=== PATIENT | female | born 1930 | race Two or more races ===

== ENCOUNTER 2019-01-17 16:43 | Inpatient (IN) | payer MEDICARE ==
[~2019-01-17] VITALS: Ht 160 cm; Wt 61.7 kg
--- NOTE | 2019-01-17 16:43 | NUR ---
PT BIB [facility],C/O WEAKNESS AFTER TAKING A SHOWER, PT IS AAOX3, NOT IN RESPIRATORY DISTRESS, HOOKED TO MONITOR, KEPT RESTED AND COMFORTABLE, WILL CONTINUE TO MONITOR.
--- NOTE | 2019-01-17 17:30 | NUR ---
PT IS WHEELD TO CT SCAN [facility] [employer] [employer].
--- NOTE | 2019-01-17 17:44 | NUR ---
URINE SPECIMEN COLLECTED AND SENT TO LAB.
--- NOTE | 2019-01-17 17:47 | NUR ---
PT IS BACK FROM THE CT SCAN. AWAITING RESULT.
[2019-01-17 18:04] LABS: BASOPHILS % (AUTO) 0.4 % (0.0-2.0); HEMATOCRIT 38 % (33-45); HEMOGLOBIN 12.7 g/dL (11.5-14.8); LYMPHOCYTES # (AUTO) 0.4 /CMM (0.8-4.8); LYMPHOCYTES % (AUTO) 3.3 % (20.0-44.0); MEAN CORPUSCULAR HGB CONC 34 g/dl (31.0-36.0); MEAN CORPUSCULAR VOLUME 96 fL (82-100); MONOCYTES # (AUTO) 0.5 /CMM (0.1-1.30); MONOCYTES % (AUTO) 4.5 % (2.0-12.0); NEUTROPHILS # (AUTO) 11.1 /CMM (1.8-8.9); NEUTROPHILS % (AUTO) 91.8 % (43.0-81.0); PLATELET COUNT (AUTO) 158 /CMM (150-450); RED BLOOD CELL COUNT(AUTO) 3.93 MIL/uL (4.0-5.2); WHITE BLOOD COUNT (AUTO) 12.1 K/uL (4.3-11.0)
[2019-01-17 18:09] LABS: APPEARANCE,URINE Clear (CLEAR); BILIRUBIN,URINE Negative (NEGATIVE); BLOOD, URINE Small Ery/uL (NEGATIVE); COLOR,URINE Yellow (YELLOW); KETONES,URINE 15 (NEGATIVE); LEUKOCYTE ESTERASE ,URINE Negative (NEGATIVE); NITRITE, URINE Negative (NEGATIVE); PROTEIN,URINE 30 mg/dl (NEGATIVE); UGLUCOSE Negative (NEGATIVE); UROBILINOGEN,URINE 0.2 EU/dL (0.2)
[2019-01-17 18:14] LABS: CALCIUM, SERUM 9.1 mg/dL (8.5-10.1); CARBON DIOXIDE 26 mmol/L (21-32); CHLORIDE 99 mmol/L (98-107); CREATININE 0.8 mg/dL (0.6-1.3); GLUCOSE 112 mg/dL (74-106); POTASSIUM 3.8 mmol/L (3.5-5.1); SODIUM SERUM 134 mmol/L (136-145); UREA NITROGEN, BLOOD 18 mg/dL (7-18)
[2019-01-17 18:17] LABS: BACTERIA,URINE Rare /HPF (None Seen); SQUAMOUS EPITHELIAL CELL,UR Few /HPF (None Seen); WBC,URINE NONE SEEN /HPF (0-3)
[2019-01-17 18:20] LABS: ALANINE AMINOTRANSFERASE 55 U/L (12-78); ALBUMIN 3.7 g/dL (3.4-5.0); ALKALINE PHOSPHATASE 142 U/L (46-116); ASPARTATE AMINOTRANSFERASE 60 U/L (15-37); BILIRUBIN,DIRECT 0.2 mg/dL (0.0-0.2); BILIRUBIN,TOTAL 1.1 mg/dL (0.2-1.0); LIPASE 217 U/L (73-393); TOTAL PROTEIN, SERUM 7.3 g/dL (6.4-8.2)
--- NOTE | 2019-01-17 18:24 | NUR ---
CALLED [employer] PROGRAMMING DEVELOPMENT PROJECT MANAGER WAS PAGED.
[2019-01-17] MEDS ORDERED: ONDANSETRON HCL/PF 4 MG/2 ML VIAL ONE (18:51)
[2019-01-17] MEDS ORDERED: IV NS 0.9% 500 ML BAG IV ONE (19:00)
--- NOTE | 2019-01-17 19:01 | NUR ---
ZOFRAN 4MG IV GIVEN VERBAL ORDERED BY DR. MCCLURE.
[2019-01-17] MEDS ORDERED: IV NS 0.9% 1,000 ML IV PRN (19:48)
[2019-01-17] MEDS ORDERED: ONDANSETRON HCL/PF 4 MG/2 ML VIAL IVP PRN (20:00)
[2019-01-17] MEDS ORDERED: ACETAMINOPHEN 325 MG TABLET PO PRN (20:00)
[2019-01-17] MEDS ORDERED: MAG HYDROX/AL HYDROX/SIMETH 30 ML UDC PO PRN (20:00)
[2019-01-17] MEDS ORDERED: HYDROCODONE/APAP 5/325MG 1 EACH TABLET PO PRN (20:00)
[2019-01-17] MEDS ORDERED: MAGNESIUM HYDROXIDE 30 ML UDC PO PRN (20:00)
--- NOTE | 2019-01-17 20:40 | NUR ---
TECH AT BEDSIDE FOR US.
--- NOTE | 2019-01-17 20:49 | NUR ---
REPORT GIVEN TO MINH VALADEZ FOR NEL.
[2019-01-17] MEDS ORDERED: CEFTRIAXONE 1 G in IV D5W 50 ML IV SCH (22:00)
--- NOTE | 2019-01-17 22:25 | NUR ---
MAINFRAME SOFTWARE DEVELOPER ADMISSION NOTES, RECEIVED 88 YO FEMALE ADMITTED FROM ER DEPARTMENT, AWAKE A/OX4 ABLE TO VERBALIZED NEEDS, BREATHING EVEN AND UNLABORED, NO SOB/ACUTE DISTRESS NOTED AT THIS TIME, VS 98.8, 125, 20, 99% RA, 140/71, 02/05, STATES DO NOT WANT PAIN MEDICATION AT THSI TIME, UNDER MEDICAL SERVICES OF [employer] ANIMAL CAREGIVER, ADMITTING DX GENERALIZED WEAKNESS, DEHYDRATION, H/O AFIB, HTN, H/O OF PARTIAL HYSTERECTOMY,, SKIN CA, AFIB IN THE TELE MONITOR HR IN 90S AT THIS TIME, REFUSED BED BATH AT THIS TIME, AFEBRILE AT THIS TIME, RIGHT LOWER LEG WOUND, REDNESS AND WELLING NOTED, WARM TO TOUCH, CALL LIGHT W/I REACH, DRY AND CLEAN, DAUGHTER AT BEDSIDE, FULL CODE PER DAUGHTER AT THIS TIME, WILL CONTINUE TO MONITOR CLOSELY.
[2019-01-17] MEDS ORDERED: CEFTRIAXONE 1 G VIAL ONE (22:58)
[2019-01-18] VITALS: BP 130/64
[2019-01-18 04:00] VITALS: BP 113/60
--- NOTE | 2019-01-18 06:42 | NUR ---
STRATEGY INTERN ENDING NOTES, PATIENT SLEEPING AT THIS TIME, BREATHING EVEN AND UNLABORED, NO SOB/ACUTE DISTRESS NOTED AT THIS TIME, AFIB IN THE TELE MONITOR HR IN 90S AT THIS TIME, NO SIGNIFICANT CHANGE IN CONDITION DURING THE NIGH, LEFT AC IV ACCESS, PATENT AND INTACT, IVF INFUSING WELL AND PATIENT TOLERATED WELL, CALL LIGHT W/I REACH, DRY AND CLEAN, B S/R OF BED IN PLACED, WILL ENDORSE CONTINUITY OF CARE TO ONCOMING NURSE.
--- NOTE | 2019-01-18 07:10 | NUR ---
RN OPENING NOTE RECEIVED PATIENT IN BED AWAKE AND ALERT, A&Ox3-4. ON TELE MONITOR WITH CONTROLLED AFIB HR 90'S. HAS A LEFT AC #20 WITH NS RUNNING AT 75 ML/HR. NO COMPLAINS OF ANY PAIN, ANY DISTRESS OR ANY SOB. PATIENT ON ROOM AIR. BED LOCKED AND ON LOWEST POSITION. CALL LIGHT WITHIN REACH. WILL CONT TO MONITOR THROUGHOUT THE SHIFT.
[2019-01-18 07:28] LABS: BASOPHILS % (AUTO) 0.1 % (0.0-2.0); HEMATOCRIT 31 % (33-45); HEMOGLOBIN 10.9 g/dL (11.5-14.8); LYMPHOCYTES # (AUTO) 0.5 /CMM (0.8-4.8); LYMPHOCYTES % (AUTO) 2.9 % (20.0-44.0); MEAN CORPUSCULAR HGB CONC 35 g/dl (31.0-36.0); MEAN CORPUSCULAR VOLUME 94 fL (82-100); MONOCYTES # (AUTO) 0.7 /CMM (0.1-1.30); MONOCYTES % (AUTO) 3.8 % (2.0-12.0); NEUTROPHILS # (AUTO) 16.8 /CMM (1.8-8.9); NEUTROPHILS % (AUTO) 93.2 % (43.0-81.0); PLATELET COUNT (AUTO) 137 /CMM (150-450); RED BLOOD CELL COUNT(AUTO) 3.35 MIL/uL (4.0-5.2)
[2019-01-18 07:31] LABS: CARBON DIOXIDE 25 mmol/L (21-32); CHLORIDE 101 mmol/L (98-107); CREATININE 0.9 mg/dL (0.6-1.3); GLUCOSE 127 mg/dL (74-106); MAGNESIUM 1.7 mg/dL (1.8-2.4); POTASSIUM 3.3 mmol/L (3.5-5.1); SODIUM SERUM 137 mmol/L (136-145); UREA NITROGEN, BLOOD 16 mg/dL (7-18)
[2019-01-18 07:43] LABS: CHOLESTEROL 126 mg/dL (<200); HDL CHOLESTEROL 76 mg/dL (40-60); LDL 51 mg/dL (0-99); THYROID STIMULATING HORMONE 0.374 uIU/mL (0.358-3.74); TRIGLYCERIDES 28 mg/dL (30-150)
[2019-01-18 08:00] VITALS: BP 105/56
[2019-01-18] MEDS: ASPIRIN 81 MG TAB.CHEW PO SCH (08:36)
--- NOTE | 2019-01-18 09:01 | NUR ---
WOUND CARE CONSULT: PT PRESENTS WITH RT LOWER LEG RAISED DRY LESIONS AND SOME REDNESS TO RT LOWER LEG, PRESENT ON ADMISSION. PT STATES WILL START RADIATION TREATMENTS SOON. DEFER TO MD FOR DRY LESIONS AND REDNESS. RECOMMENDATIONS MADE FOR SKIN PROTECTION. DISCUSSED WITH NURSING STAFF. PT IS CONTINENT AND ABLE TO ASSIST WITH TURNING AND REPOSITIONING IN BED. WILL SEE PRN. Addendum: 01/18/19 at 0902 by SVETLANA CHRISTIANSON WNDNU Amended: Links added.
[2019-01-18] MEDS ORDERED: Magnesium 1GM/D5W 100ML PREMIX 100 ML IV SCH (09:30)
[2019-01-18] MEDS ORDERED: IV NS 0.9% 1,000 ML IV PRN (09:51)
[2019-01-18] MEDS ORDERED: POTASSIUM CHLORIDE 10 MEQ TABLET.SA PO ONE (10:00)
[2019-01-18] MEDS ORDERED: FEE PK DOSING 1 MIN EA MC ONE (10:04)
[2019-01-18] MEDS: Magnesium 1GM/D5W 100ML PREMIX 100 ML IV SCH ×2 (10:15→13:46)
[2019-01-18] MEDS ORDERED: SODI15DR6 EACHEYE (10:32)
[2019-01-18] MEDS ORDERED: ASPI-1169 PO (10:32)
[2019-01-18] MEDS: VANCOMYCIN 1 GM in IV D5W 250 ML IV SCH (11:41)
[2019-01-18] MEDS ORDERED: PIPERACILLIN /TAZOBACTAM 2.25 G in IV D5W 50 ML IV SCH (12:00)
[2019-01-18] MEDS ORDERED: PIPERACILLIN /TAZOBACTAM 3.375 G in IV D5W 50 ML IV SCH (12:00)
[2019-01-18 16:00] VITALS: BP 115/87
--- NOTE | 2019-01-18 19:18 | NUR ---
RN CLOSING NOTE PATIENT ON BED AWAKE AND ALERT. A&Ox4. BATHROOM PRIVILEGES, WENT TO THE BATHROOM TWICE TODAY. DR. GHOTRA ORDERED VANCOMYCIN FOR RIGHT LOWER EXTREMITY CELLULITIS. HAS LEFT AC #20 FLUIDS RUNNING AT 70 CC/HR. NO COMPLAINS OF ANY PAIN OR SOB. BED LOCKED AND LOWEST POSITION. CALL LIGHT WITHIN REACH. ALL NEEDS MET. WILL ENDORSE TO NOC SHIFT.
[2019-01-18 20:00] VITALS: BP 120/70
[2019-01-19 04:00] VITALS: BP 156/77
--- NOTE | 2019-01-19 05:11 | NUR ---
RT NOTE EKG RESULTS RELAYED TO CHARGE NURSE AND RN.
--- NOTE | 2019-01-19 06:24 | NUR ---
MS RN NOTES AWAKE & RESPONSIVE. NOT IN ANY DISTRESS. NO SOB NOTED. DENIES ANY PAIN OR DISCOMFORT AT THIS TIME. WITH IVF INFUSING WELL. MONITORED ACCORDINGLY. CALL LIGHT WITHIN REACH. BED IN LOWEST POSITION. SR UP X 2 FOR SAFETY. WILL ENDORSE TO NEXT SHIFT.
[2019-01-19 07:33] LABS: BASOPHILS % (AUTO) 0.1 % (0.0-2.0); EOSINOPHILS % (AUTO) 0.1 % (0.0-6.0); HEMATOCRIT 36 % (33-45); HEMOGLOBIN 12.2 g/dL (11.5-14.8); LYMPHOCYTES # (AUTO) 0.9 /CMM (0.8-4.8); LYMPHOCYTES % (AUTO) 7.8 % (20.0-44.0); MEAN CORPUSCULAR HGB CONC 34 g/dl (31.0-36.0); MEAN CORPUSCULAR VOLUME 95 fL (82-100); MONOCYTES # (AUTO) 0.7 /CMM (0.1-1.30); MONOCYTES % (AUTO) 6.3 % (2.0-12.0); NEUTROPHILS # (AUTO) 9.7 /CMM (1.8-8.9); NEUTROPHILS % (AUTO) 85.7 % (43.0-81.0); PLATELET COUNT (AUTO) 142 /CMM (150-450); RED BLOOD CELL COUNT(AUTO) 3.78 MIL/uL (4.0-5.2); WHITE BLOOD COUNT (AUTO) 11.3 K/uL (4.3-11.0)
[2019-01-19 07:42] LABS: ALANINE AMINOTRANSFERASE 67 U/L (12-78); ALBUMIN 3.2 g/dL (3.4-5.0); ALKALINE PHOSPHATASE 113 U/L (46-116); ASPARTATE AMINOTRANSFERASE 101 U/L (15-37); CALCIUM, SERUM 8.2 mg/dL (8.5-10.1); CARBON DIOXIDE 24 mmol/L (21-32); CHLORIDE 101 mmol/L (98-107); CREATININE 0.8 mg/dL (0.6-1.3); GLUCOSE 107 mg/dL (74-106); MAGNESIUM 1.8 mg/dL (1.8-2.4); PHOSPHORUS 2.3 mg/dL (2.5-4.9); POTASSIUM 3.5 mmol/L (3.5-5.1); SODIUM SERUM 136 mmol/L (136-145); TOTAL PROTEIN, SERUM 6.9 g/dL (6.4-8.2); UREA NITROGEN, BLOOD 14 mg/dL (7-18)
--- NOTE | 2019-01-19 07:48 | NUR ---
RN MS OPENING NOTES BEDSIDE REPORT GIVEN PATIENT ASLEEP IN BED ABLE TO AROUSE WITH VOICE AND TOUCH A&Ox4. BATHROOM PRIVILEGES,/BEDSIDE COMMODE WENT TO THE BATHROOM TWICE TODAY.R HAND # [id number] FLUIDS RUNNING AT 70 CC/HR. NO COMPLAINS OF ANY PAIN OR SOB.SAFETY PRECAUTIONS IN PLACE BED LOCKED AND LOWEST POSITION. CALL LIGHT WITHIN REACH. ALL NEEDS MET. WILL CONT TO MONITOR
[2019-01-19 08:00] VITALS: BP 148/75
[2019-01-19] MEDS ORDERED: BISACODYL (5 MG) 5 MG TABLET.DR PO PRN (08:30)
[2019-01-19] MEDS ORDERED: SULF1TAB48 PO (08:36)
[2019-01-19] MEDS: ASPIRIN 81 MG TAB.CHEW PO SCH (08:40)
--- NOTE | 2019-01-19 09:00 | NUR ---
RN MS NOTES DR GHOTRA AT BEDSIDE WITH PATIENT. ORDERS FOR DISCHARGE AWAITING FOR SON TO ARRANGE TIME TO P/U AND TAKE BACK TO FACILITY.
[2019-01-19] MEDS: VANCOMYCIN 1 GM in IV D5W 250 ML IV SCH (10:51)
--- NOTE | 2019-01-19 12:17 | NUR ---
DEPUTY BRAND INSPECTOR NOTES PATIENT DISCHARGED. ALL PHOTOS TAKEN AND DOCUMENTED, IV REMOVED CATH INTACT. LAST VS BP 134/82 HR 81 RR 18 O2 98% TEMP 97.9. DRESSING CHANGED SON HERE TO TRANSPORT MOM TO [facility]. ALL PAPERWORK SIGNED AND GIVEN TO PATIENT.
== END 2019-01-19 12:17 | disposition home health service (06) | DRG 603 ==
LOC: ER 16:43 → TELE1 21:51 → MEDSG1 01-18 10:04
PROVIDERS: ADMIT Nurse Practitioner Acute Care; ATTEND Internal Medicine
DX: L03.115 Cellulitis of right lower limb (principal); C44.722 Squamous cell carcinoma of skin of right lower limb, including hip; E86.0 Dehydration; I48.2 Chronic atrial fibrillation; Z86.73 Personal history of transient ischemic attack (TIA), and cerebral infarction without residual deficits; D69.2 Other nonthrombocytopenic purpura; I10 Essential (primary) hypertension; D64.9 Anemia, unspecified; Z90.711 Acquired absence of uterus with remaining cervical stump; Z79.82 Long term (current) use of aspirin
CPT/HCPCS: 36415; 70450-TC; 71045-TC; 80048-TC; 80053-TC; 80061-TC; 80076-TC; 81000-TC; 82962-TC; 83690-TC; 83735-TC; 84100-TC; 84439-TC; 84443-TC; 84484-TC; 85025-TC; 85730-TC; 87081-TC; 93307-TC; 93971-TC; G0378; J0696; J2405; J2543; J3370; J3475; J7030; J7060